=== PATIENT | female | born 1955 | race Hispanic/Latino ===

== ENCOUNTER 2018-11-18 09:40 | Outpatient (CLI) | payer OTHER ==
--- NOTE | 2018-11-18 11:45 | Vascular Lab Report ---
DUPLEX DOPPLER LOWER EXTREMITY ARTERIAL, BILATERAL INDICATION / CLINICAL INFORMATION: LEG PAIN CLAUDICATION. TECHNIQUE: Arterial duplex examination of both lower extremities performed using B-mode, color flow and spectral Doppler assessment. FINDINGS: RIGHT: Common Femoral Artery: PSV 111 cm/sec. Biphasic waveform. Proximal SFA: PSV 132 cm/sec. Biphasic waveform. Mid SFA: PSV 108 cm/sec. Biphasic waveform. Distal SFA: PSV 71 cm/sec. Biphasic waveform. Popliteal artery: PSV 60 cm/sec. Biphasic waveform. Posterior tibial artery: PSV 44 cm/sec. Biphasic waveform. Dorsalis Pedis Artery: PSV 41 cm/sec. Biphasic waveform. LEFT: Common Femoral Artery: PSV 152 cm/sec. Biphasic waveform. Proximal SFA: PSV 85 cm/sec. Biphasic waveform. Mid SFA: PSV 80 cm/sec. Biphasic waveform. Distal SFA: PSV 40 cm/sec. Monophasic waveform. Popliteal artery: PSV 37 cm/sec. Monophasic waveform. Posterior tibial artery: PSV 30 cm/sec. Monophasic waveform. Dorsalis Pedis Artery: PSV 34 cm/sec. Monophasic waveform. Right YAZAN: Not performed. Left YAZAN: Not performed. IMPRESSION: 1. Distal left popliteal crural peripheral vascular disease with abnormal monophasic waveforms 2. No significant right lower extremity peripheral artery disease. Ankle-Brachial Index (YAZAN): - Calcified arteries > 1.4 - Normal = 0.9-1.4 - Mild PAD = 0.7-0.89 - Moderate PAD = 0.51-0.69 - Severe PAD < 0.5 Doppler Waveform: - Triphasic is normal. - Biphasic is abnormal if clear transition from triphasic signal along vascular tree. - Monophasic is abnormal. Signer Name: Wayne Younger MD Signed: 11/18/2018 11:41 AM Workstation Name: [id number]
== END 2018-11-18 09:41 | disposition home or self-care (01) ==
LOC: VAS 09:40
PROVIDERS: ATTEND Internal Medicine
DX: I73.9 Peripheral vascular disease, unspecified (principal)
CPT/HCPCS: 93925

== ENCOUNTER 2018-11-29 08:48 | Outpatient (CLI) | payer OTHER ==
[2018-11-29 10:29] LABS: Basophils # (Auto) 0.1 K/mm3 (0.0-0.1); Basophils % (Auto) 0.8 % (0.0-1.8); Eosinophils # (Auto) 0.2 K/mm3 (0.0-0.4); Eosinophils % (Auto) 2.8 % (0.0-4.3); Hematocrit 43.5 % (30.3-42.9); Hemoglobin 14.6 gm/dl (10.1-14.3); Lymphocytes # (Auto) 2.7 K/mm3 (1.2-5.4); Lymphocytes % (Auto) 36.1 % (13.4-35.0); Mean Corpuscular HGB Conc 34 % (30-34); Mean Corpuscular Volume 99 fl (79-97); Monocytes # (Auto) 0.4 K/mm3 (0.0-0.8); Platelet Count 233 K/mm3 (140-440); Red Cell Distribution Width 13.5 % (13.2-15.2)
[2018-11-29 11:22] LABS: Free T4 (Free Thyroxine) 0.85 ng/dL (0.76-1.46)
[2018-11-29 11:32] LABS: Alanine Aminotransferase 11 units/L (7-56); Albumin 4.4 g/dL (3.9-5); BUN/Creatinine Ratio 18; Blood Urea Nitrogen 14 mg/dL (7-17); Calcium 9.4 mg/dL (8.4-10.2); HDL Cholesterol 57 mg/dL (40-59); Hemolysis Index 6; LDL Cholesterol,Direct 183 mg/dL (50-130)
[2018-12-01 09:48] LABS: Vitamin D, 25-OH, D2 <4 ng/mL
== END 2018-11-29 08:49 | disposition home or self-care (01) ==
LOC: LAB 08:48
PROVIDERS: ATTEND Internal Medicine
DX: Z00.00 Encounter for general adult medical examination without abnormal findings (principal); Z13.21 Encounter for screening for nutritional disorder; E03.9 Hypothyroidism, unspecified; E78.5 Hyperlipidemia, unspecified; Z13.1 Encounter for screening for diabetes mellitus
CPT/HCPCS: 36415; 80053; 80061; 82306; 82607; 83036; 84439; 84443; 85025

== ENCOUNTER 2019-04-01 10:52 | Outpatient (CLI) | payer OTHER ==
[2019-04-01 13:31] LABS: Chol/HDL Ratio 2.28 %
== END 2019-04-01 10:53 | disposition home or self-care (01) ==
LOC: LAB 10:52
PROVIDERS: ATTEND Internal Medicine
DX: E78.5 Hyperlipidemia, unspecified (principal)
CPT/HCPCS: 36415; 80061

== ENCOUNTER 2020-06-19 11:44 | Outpatient (CLI) | payer MEDICARE ==
--- NOTE | 2020-06-19 12:56 | XRay Report ---
BILATERAL HIPS, 2 views with pelvis INDICATION: Bilateral hip pain.. COMPARISON: None. FINDINGS: Frontal and frog-leg lateral views of the bilateral hips were obtained. There is no evidenc e of acute fracture or dislocation. Moderate to severe osteoarthritic changes appears slightly worse on the right with superior joint space narrowing and subchondral cyst formation. Partially visualized moderate to severe degenerative change in the lower lumbar spine. Partially visualized IVC filter is noted. IMPRESSION: No evidence of acute osseous injury. Moderate to severe osteoarthritic changes involving both hips, worse on the right. Signer Name: Nish Parada MD Signed: 06/19/2020 12:52 PM Workstation Name: [id number]
--- NOTE | 2020-06-19 12:58 | XRay Report ---
RIGHT SHOULDER HISTORY: Pain, fall many years ago. COMPARISON: None. TECHNIQUE: 3 views of the right shoulder were obtained. FINDINGS: Bones: No fracture or dislocation. Mild glenohumeral osteoarthritic change. Moderate right acromiocl avicular arthropathy. Joint spaces: Maintained. Soft tissues: No significant abnormality. Additional findings: None. IMPRESSION: Right shoulder without evidence of acute fracture or dislocation. Mild glenohumeral osteoarthritic change. Signer Name: Nish Parada MD Signed: 06/19/2020 12:53 PM Workstation Name: [id number]
== END 2020-06-19 11:45 | disposition home or self-care (01) ==
LOC: XRAY 11:44
PROVIDERS: ATTEND Internal Medicine
DX: M19.011 Primary osteoarthritis, right shoulder (principal); M16.0 Bilateral primary osteoarthritis of hip
CPT/HCPCS: 73521

== ENCOUNTER 2021-04-30 14:26 | Outpatient (CLI) | payer MEDICARE ==
--- NOTE | 2021-05-01 06:51 | XRay Report ---
RIGHT HAND 3 VIEW(S) INDICATION / CLINICAL INFORMATION: M79.641 pain in right hand. No history of trauma provided. COMPARISON: None available. FINDINGS: BONES / JOINT(S): No acute fracture or subluxation. No significant arthritis. Small calcification adj acent to the tip of the ulnar styloid may reflect sequelae of prior fracture. SOFT TISSUES: No significant abnormality. ADDITIONAL FINDINGS: None. IMPRESSION: 1. No acute fracture. No significant abnormality. Signer Name: Eduardo Chavez II, MD Signed: 05/01/2021 6:47 AM Workstation Name: [id number]
== END 2021-04-30 14:27 | disposition home or self-care (01) ==
LOC: XRAY 14:26
PROVIDERS: ATTEND Internal Medicine
DX: S52.611D Displaced fracture of right ulna styloid process, subsequent encounter for closed fracture with routine healing (principal); X58.XXXD Exposure to other specified factors, subsequent encounter